=== PATIENT | male | born 1990 ===

== ENCOUNTER 2017-04-03 10:10 | Emergency (ER) | payer OTHER ==
[2017-04-03] MEDS ORDERED: Bacitracin 500 Units/gm Oint Foilpak UD TOP ONE (10:27)
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
[2017-04-03] MEDS ORDERED: Bacitracin 500 Units/gm Oint Foilpak UD ONE (10:54)
[2017-04-03 10:59] VITALS: BP 120/79; PULSE 80; RESP 16; TEMP 97.3; O2SAT 97
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
--- NOTE | 2017-04-03 11:42 | RAD ---
PROCEDURE: Radiographs of the pelvis and right hip joint INDICATION: COMPARISON: None. FINDINGS: AP pelvis and frog lateral views of the right hip were obtained. The pelvic ring is intact. The hip joint spaces are maintained. There is no evidence of fracture, dislocation or bone destruction. There is no periarticular soft tissue calcification. IMPRESSION: No acute fracture or dislocation.
== END 2017-04-03 12:05 | disposition home or self-care (01) ==
LOC: C.ER 10:10
DX: S62.101A Fracture of unspecified carpal bone, right wrist, initial encounter for closed fracture (principal); S70.01XA Contusion of right hip, initial encounter; S50.01XA Contusion of right elbow, initial encounter; V13.4XXA Pedal cycle driver injured in collision with car, pick-up truck or van in traffic accident, initial encounter; Y93.55 Activity, bike riding; Y92.410 Unspecified street and highway as the place of occurrence of the external cause